=== PATIENT | male | born 1965 | race Caucasian/White ===

== ENCOUNTER 2020-09-06 19:34 | Emergency (ER) | payer OTHER, SELFPAY ==
[2020-09-06] VITALS (12 sets, daily range): BP systolic 153–168; BP diastolic 85–117; PULSE 82–92; RESP 14–18; TEMP 37.6–37.8; O2SAT 97–100
--- NOTE | ~2020-09-06 | CT_ITS ---
EXAMINATION: CT abdomen pelvis wo con DATE: 09/06/2020 20:00 INDICATION: Right flank pain TECHNIQUE: Computed tomography (CT) of the abdomen and pelvis was performed without intravenous contr ast. The dose-length product (DLP) was 460.62 mGy-cm. Automated exposure control and iterative recons truction technique were employed. COMPARISON: None FINDINGS: Minimal dependent atelectasis is present in the lung bases. The heart size is normal. The l iver, spleen, pancreas, gallbladder, and adrenal glands are normal. There is a 2.0 cm exophytic soft tissue density mass of the right kidney upper pole. No stones are identified in the kidneys, ureters, or bladder. There is no hydronephrosis or hydroureter. No pathologically enlarged abdominal or pelvi c lymph nodes are identified. There is no free intraperitoneal gas or evidence of bowel obstruction. The appendix is normal. There is moderate lumbar spondylosis. IMPRESSION: 1. No CT correlate for the patient's symptoms. 2. Soft tissue density mass of the right kidney upper pole which could reflect proteinaceous cyst or solid neoplasm. Follow-up with nonemergent CT or MRI without and with contrast is recommended. Reviewed, dictated and finalized at location A. IMPRESSION: 1. No CT correlate for the patient's symptoms. 2. Soft tissue density mass of the right kidney upper pole which could reflect proteinaceous cyst or solid neoplasm. Follow-up with nonemergent CT or MRI with out and with contrast is recommended.
--- NOTE | ~2020-09-06 | CT_ITS ---
EXAMINATION: CT abdomen pelvis w con DATE: 09/06/2020 22:01 INDICATION: Right flank pain. Renal cyst. TECHNIQUE: Computed tomography (CT) of the abdomen and pelvis was performed with 100 mL Omnipaque-350 intravenous contrast. Automated exposure control and iterative reconstruction technique were employe d. The dose-length product was 1034.25 mGy-cm. COMPARISON: 09/06/2020 FINDINGS: Mild dependent atelectasis in the bilateral lower lobes. Calcified right lower lobe nodule consistent with old granulomatous disease. Heart size is normal. No pericardial or pleural effusion. Liver, spl een, pancreas, bilateral adrenal glands and left kidney are normal. Complex hemorrhagic/proteinaceous 2.1 cm exophytic cyst arising from the upper pole of the right kidney with no enhancement/change in attenuation when compared with the earlier noncontrast study. Bowels including the appendix are nile l. Bladder is normal. No free intraperitoneal gas or fluid. No pathologically enlarged abdominal or p elvic lymphadenopathy. There is some inflammatory stranding along the right anterior margin of the T9 -T10 disc space where there is a prominent previously bridging endplate osteophyte. There is linear l ucency at the junction of the osteophyte and the T9 vertebral body which appears new when compared wi th study dated 01/01/2018 suspicious for fracture. IMPRESSION: 1. Mild inflammatory stranding in the paravertebral fat along the right anterior margin of the T9-T10 disc space where there appears to be a new fracture of a previously bridging anterior osteophyte. 2. No acute intra-abdominal/pelvic process. 3. 2.1 cm nonenhancing complex proteinaceous/hemorrhagic right renal cyst Reviewed, dictated and finalized at location A. IMPRESSION: 1. Mild inflammatory stranding in the paravertebral fat along the right anterio r margin of the T9-T10 disc space where there appears to be a new fracture of a previously bridging anterior osteophyte. 2. No acute intra-abdominal/pelvic process. 3. 2.1 cm nonenhancing complex proteinaceous/hemorrhagic right renal cyst
--- NOTE | 2020-09-06 19:52 | ED.ABDPAIN ---
HPI - Abdominal Pain General Chief Complaint: Abdominal Pain Stated Complaint: flank pain Time Seen by Provider: 09/06/20 19:43 History of Present Illness HPI narrative: 54 yo male w/ h/o DM type II presents to the ED with right flank pain since last night. He reports that the pain started in the car on the way home from eating at a [place] restaurant. It was initially more in the back, but now radiates to the RUQ. It is 9/10 in severity. Associated with mild nausea. No previous episodes. No previous abdominal surgeries. Related Data Home Medications Medication Instructions Recorded Confirmed Celebrex 200 mg PO DAILY 05/10/19 05/10/19 insulin glargine [Lantus Solostar 160 unit SUBCUT DAILY 05/10/19 05/10/19 U-100 Insulin] lisinopril 20 mg PO DAILY 05/10/19 05/10/19 metformin 1,000 mg PO BID 05/10/19 05/10/19 Allergies Allergy/AdvReac Type Severity Reaction Status Date / Time No Known Allergies Allergy Verified 05/10/19 16:11 Review of Systems Review of Systems: All systems reviewed & are unremarkable except as noted in HPI and below Constitutional: Constitutional: Denies chills and Denies fever(s) Cardiovascular: Cardiovascular: Denies chest pain Respiratory: Respiratory: Denies dyspnea Gastrointestinal: Gastrointestinal: Reports as per HPI Genitourinary: Genitourinary: Denies hematuria, Denies dysuria and Denies urinary frequency Musculoskeletal: Musculoskeletal: Reports as per HPI Exam Const: General: no acute distress Orientation/consciousness: patient oriented x3 HENMT: Head: normal to inspection Neck: Neck: normal visual inspection and no lymphadenopathy Chest: Chest palpation & inspection: no tenderness Resp: Effort & Inspection: normal respiratory effort Auscultation: clear to auscultation bilaterally, no rales, no rhonchi and no wheezes Cardio: Jugular venous distension: no JVD Rate: regular rate Rhythm: regular rhythm Heart sounds: no murmurs GI: Inspection: non-distended GI Palp: Yes Soft to palpation, Yes Tenderness to palpation present (GI) (RUQ), No Guarding due to palpation present (GI) and No Rebound tenderness present Auscultation: normal bowel sounds Skin: General skin exam: normal color Neuro: General: patient oriented x3 and moves all extremities Speech: normal speech Extrem: General: no edema Psych: Appearance: well kempt Affect: normal affect Course Vital Signs Vital signs: Vital Signs Pulse Rate 86 09/06/20 19:35 Respiratory Rate 14 09/06/20 19:35 Blood Pressure 157/117 H 09/06/20 19:35 Pulse Oximetry 100 09/06/20 19:35 Temperature 37.6 C 09/06/20 23:05 Pulse Rate 82 09/06/20 23:05 Respiratory Rate 18 09/06/20 23:05 Blood Pressure 158/93 H 09/06/20 23:30 Pulse Oximetry 99 09/06/20 23:05 MDM - Abdominal Pain MDM Narrative Medical decision making narrative: CT negative for any acute findings. He did have an indeterminate cystic lesion of the kidney he was informed and advised to follow up with urology. He also had a area of mildly distended bowel with stool and gas in the region where he is having pain. This could be the cause of his symptoms. Feeling better after toradol. Differential Diagnosis Differential diagnosis: Likely acute appendicitis, calculus of kidney, constipation, diverticulitis, small bowel obstruction and other (cholecystitis) Medical Records Attestation: I reviewed the patient's medical records. Lab Data Attestation: I reviewed the patient's lab results. Result diagrams: 09/06/20 20:23 09/06/20 20:23 Labs: Lab Results 09/06/20 09/06/20 09/06/20 Range/Units 20:23 20:23 20:23 WBC 10.8 H (4.5-10.0) K/mm3 RBC 4.86 (4.6-6.20) M/mm3 Hgb 13.4 L (14.0-18.0) g/dL Hct 41.8 L (42.0-52.0) % MCV 86.0 (80-100) fl MCH 27.6 (26-34) pg MCHC 32.1 (32-36) g/dl RDW 13.1 (11.5-14.5) % Plt Count 267 (150-375) k/mm3 MPV 9.7 (7.4-10.4)
--- NOTE | 2020-09-06 19:53 | PC.NURSE ---
Patient to CT at this time.
[2020-09-06] MEDS: MORPHINE SULFATE (*CRX) 4 MG/ML INJ IV PUSH (20:12)
[2020-09-06 20:31] LABS: Basophils Percent Auto 0.4 % (0.2-1.2); Eosinophils Absolute Auto 0.1 K/mm3 (0-0.3); Eosinophils Percent Auto 1.3 % (0-4.4); Hematocrit 41.8 % (42.0-52.0); Hemoglobin 13.4 g/dL (14.0-18.0); Immature Granulocyte Absolute 0.04 K/mm3 (0.00-0.031); Immature Granulocyte Percent A 0.4 % (0-0.5); Lymphocytes Absolute Auto 1.82 K/mm3 (0.9-3.2); Lymphocytes Percent Auto 16.9 % (18.3-44.2); Mean Corpuscular HGB Conc 32.1 g/dl (32-36); Mean Corpuscular Hemoglobin 27.6 pg (26-34); Mean Platelet Volume 9.7 fl (7.4-10.4); Monocytes Absolute Auto 1.4 K/mm3 (0.1-0.6); Monocytes Percent Auto 12.9 % (2.6-8.5); Neutrophils Absolute Auto 7.3 K/mm3 (1.3-6.7); Neutrophils Percent Auto 68.1 % (45.5-73.1); Platelet Count Result 267 k/mm3 (150-375); Red Blood Count 4.86 M/mm3 (4.6-6.20); Red Cell Distribution Width 13.1 % (11.5-14.5); White Blood Count 10.8 K/mm3 (4.5-10.0)
[2020-09-06 20:35] LABS: Add Urine Microscopic? YES; Appearance Urine Clear (Clear); Bilirubin Urine Negative (Negative); Blood Urine Negative (Negative); Color Urine Yellow (Yellow); Glucose Urine UA 3+ mg/dL (Negative); Ketones Urine Negative (Negative); Leukocyte Esterase Ur Negative LEU/UL (Negative); Nitrate Urine Negative (Negative); Protein Urine Negative (Negative); RBC Urine 0-2 /hpf (0-2); Specific Grav Ur 1.027 (1.001-1.035); Urobilinogen Urine Negative mg/dL (<2.0); WBC Urine 0-3 /hpf
[2020-09-06 20:41] LABS: Alanine Aminotransferase 18 U/L (4-50); Alkaline Phosphatase 81 U/L (38-126); Anion Gap 4 mmol/L (8-16); Aspartate Amino Transferase 23 U/L (17-59); Blood Urea Nitrogen 17 mg/dL (9-20); Carbon Dioxide 28 mmol/L (22-30); Chloride 103 mmol/L (98-107); Estimated CRCL calculation 110 ml/min; Estimated Glomerular Filt Rate > 60; Glucose 282 mg/dL (75-110); Lipase 83 U/L (23-300); Sodium 135 mmol/L (137-145)
[2020-09-06 20:47] LABS: INR 0.9; Prothrombin Time 12.5 Seconds (11.1-14.7)
[2020-09-06 20:48] LABS: Partial Thromboplastin Time 25.7 SECONDS (22.3-36.8)
[2020-09-06] MEDS: diazePAM INJ (*CRX) 10 MG/2 ML SYRINGE 5 MG IV PUSH (21:47)
[2020-09-06] MEDS: KETOROLAC 30 MG/ML VIAL (*BKC) IV PUSH (23:29)
== END 2020-09-07 00:07 | disposition home or self-care (01) ==
PROVIDERS: Emergency Medicine; Emergency Provider Emergency Medicine
DX: N28.1 Cyst of kidney, acquired (principal); E11.9 Type 2 diabetes mellitus without complications; Z79.4 Long term (current) use of insulin; R93.7 Abnormal findings on diagnostic imaging of other parts of musculoskeletal system
CPT/HCPCS: 36415; 74176; 74177; 80053; 81001; 83690; 85025; 85610; 85730; 96374; 96375; 99284; J1885; J2270; J3360; Q9967

== ENCOUNTER → 2021-03-18 07:40 | Outpatient (CLI) | payer OTHER, SELFPAY ==
--- NOTE | ~2021-03-18 | MR_ITS ---
EXAMINATION: MR abdomen wo/w con DATE: 03/18/2021 08:40 INDICATION: Renal cyst. TECHNIQUE: Magnetic resonance imaging (MRI) of the abdomen was performed without and with 20 mL Multi Kassie intravenous contrast. Sequences included coronal T2-weighted FS FSE, coronal and axial FIESTA F S, coronal LAVA-flex, axial LAVA, axial T2-weighted FSE, axial T1-weighted dual-echo FSPGR, axial STI R FSE, and axial DWI. Postcontrast sequences included coronal LAVA-flex and a time course of axial LA VA. COMPARISON: CT abdomen and pelvis 09/06/2020 FINDINGS: The liver, gallbladder, spleen, pancreas, adrenal glands, and left kidney are normal. There is a 16 m m hemorrhagic cyst in right kidney. There are no dilated loops of bowel. There are no pathologically enlarged lymph nodes. There is no free intraperitoneal fluid. IMPRESSION: 1. 16 mm benign hemorrhagic cyst in right kidney. Reviewed, dictated and finalized at location A. CONSULTANT
[2021-03-18 08:11] LABS: Estimated Glomerular Filt Rate > 60
== END ==
PROVIDERS: Visit Provider Urology
DX: N28.1 Cyst of kidney, acquired (principal)
CPT/HCPCS: 74183; A9577

== ENCOUNTER 2021-12-31 18:17 | Emergency (ER) | payer OTHER, SELFPAY ==
--- NOTE | 2021-12-31 18:19 | ED.URI ---
HPI - URI/Sore Throat General Chief Complaint: Upper Respiratory Infection Stated Complaint: unknown Time Seen by Provider: 12/31/21 18:44 Source: patient and RN notes reviewed Mode of arrival: ambulatory Limitations: no limitations History of Present Illness HPI Narrative: 56-year-old male with history of diabetes presents with concern for fever, chills, diarrhea. He reports he received a flu shot at his primary care doctor on Tuesday, yesterday he began having symptoms. Reports at first he attributed it to the flu shot, however his fever got up to 101. He denies cough, chest pain, shortness of breath. He denies taking any wpkf-ywi-phxwyxg medications for his symptoms. MD elicited complaint: fever Related Data Home Medications Medication Instructions Recorded Confirmed atorvastatin 80 mg tablet 80 mg PO WEEKLY 12/31/21 12/31/21 blood sugar diagnostic ([employer] 12/31/21 12/31/21 Ultra Test strips) flash glucose scanning reader 12/31/21 12/31/21 ([employer] Katie 2 [place]) gabapentin 300 mg capsule 300 mg PO TID 12/31/21 12/31/21 insulin glargine-yfgn 100 unit/mL 100 unit subcut DAILY 12/31/21 12/31/21 (3 mL) subcutaneous pen (Semglee (insulin glargine-yfgn) Pen) insulin lispro-aabc 100 unit/mL 100 unit subcut DAILY 12/31/21 12/31/21 subcutaneous pen (Lyumjev KwikPen U-100 Insulin) losartan 50 mg tablet 50 mg PO DAILY 12/31/21 12/31/21 pen needle, diabetic 32 gauge x 12/31/21 12/31/21 5/32 (BD Nuzhat 2nd Gen Pen Needle) tamsulosin 0.4 mg capsule 0.4 mg PO DAILY 12/31/21 12/31/21 Allergies Allergy/AdvReac Type Severity Reaction Status Date / Time No Known Allergies Allergy Verified 12/31/21 18:19 Review of Systems Review of Systems: CONSTITUTIONAL: Reports malaise, chills, sweats, fever. EYES: Denies visual changes, redness, or discharge. ENT: Denies rhinorrhea, congestion, sinus pain, otalgia and sore throat. CARDIOVASCULAR: Denies chest pain, palpitations, or edema. RESPIRATORY: Denies cough. Denies dyspnea. GASTROINTESTINAL: Denies abdominal pain, nausea, vomiting, diarrhea SKIN: Denies rash or itching. MUSCULOSKELETAL: Denies myalgia. NEUROLOGIC: Denies headache. All systems reviewed & are unremarkable except as noted in HPI and below PMFSH Comments At time of signature, agree with nursing past medical, surgical, social and family history. There is no relevant family history pertinent to the presenting complaint Exam Narrative: GENERAL: Nontoxic appearing and in no acute distress. HEAD: Normocephalic EYES: PERRLA, conjunctivae clear ENT: Nares clear. Mucous membranes moist. TM pearly high with dull light reflex bilaterally; no tragal tenderness. Oropharynx not erythematous without lesions. Tonsils not enlarged and without exudate, no drooling, no hoarseness, no trismus, uvula midline. NECK: Supple. No lymphadenopathy CHEST: Clear to auscultation, breath sounds equal. No wheezing, rhonchi, rales, or stridor. No respiratory distress, speaks in full sentences. HEART: Regular rate and rhythm. No murmur heard. SKIN: Warm, dry, no rash. NEURO: Alert and oriented x3. PSYCH: Normal mood and affect Course Course Emergency Course: Patient is aware of diagnosis, understands and agrees to treatment plan. Anticipatory guidance given. Patient agrees to follow-up as directed and is aware of reasons to seek care at the emergency department. Portions of this record may have been created with voice recognition software Level of Care: Express Care Visit Vital Signs Vital signs: Reviewed. MDM - URI/Sore Throat MDM Narrative Medical decision making narrative: Differential diagnosis considered: Llanos virus, strep pharyngitis, allergic rhinitis, upper respiratory tract infection, sinusitis, rhinosinusitis, nasopharyngitis. viral pharyngitis, otitis media, otitis externa, pneumonia, bronchitis, viral cough syndrome, viral syndrome, and influenza. Exam findings show no acute concerns or changes; patie
[2021-12-31 18:27] VITALS: BP 121/83; PULSE 93; RESP 18; TEMP 36.6; O2SAT 98
== END 2021-12-31 18:58 | disposition home or self-care (01) ==
PROVIDERS: Emergency Provider Nurse Practitioner
DX: J10.1 Influenza due to other identified influenza virus with other respiratory manifestations (principal); E11.9 Type 2 diabetes mellitus without complications; Z79.4 Long term (current) use of insulin; Z20.822 Contact with and (suspected) exposure to COVID-19
CPT/HCPCS: 87426; 87804; 99213; C9803; G0463

== ENCOUNTER 2023-09-14 15:43 | Emergency (ER) | payer OTHER, SELFPAY ==
--- NOTE | ~2023-09-14 | XR_ITS ---
EXAM: XR hip RT 2V w AP pelvis DATE: 09/14/2023 17:24 HISTORY: RIGHT HIP PAIN, NO KNOWN INJURY . COMPARISON: CT abdomen pelvis 09/06/2020. FINDINGS: Normal mineralization. No fracture or dislocation. No lytic or blastic lesion. Lumbar dege nerative disc disease. Mild bilateral hip osteoarthritis. Mild pelvic enthesopathy. No erosion or per iosteal change. Scattered vascular and possibly vas deferens calcification. IMPRESSION: No acute osseous finding in the pelvis or right hip. Reviewed, dictated and finalized at location K.
--- NOTE | 2023-09-14 16:00 | ED.BACK ---
HPI - Back Pain/Injury General Chief Complaint: Back Pain/Injury Stated Complaint: back, right hip pain Time Seen by Provider: 09/14/23 15:55 Source: patient Mode of arrival: ambulatory Limitations: no limitations History of Present Illness HPI Narrative: This is a 57 old male presents with right hip pain radiating into right buttock pain of several weeks duration. Patient denies any fevers. No known trauma or injury. He has been taking Advil b.i.d. states this does not work. He denies any numbness or tingling but it occasionally experience a warm sensation in his right leg. Works as a [employer]. His muscles will feel tense after sitting for a prolonged duration. Denies penile discharge or groin pain. No IVDU. No changes in bowel or bladder. Patient states his blood sugars have been elevated and for this his primary care physician (Dr Gallegos) has referred him to an environmental project manager. He is on both long acting and short acting insulin. Related Data Home Medications Medication Instructions Recorded Confirmed atorvastatin 80 mg tablet 80 mg PO WEEKLY 12/31/21 12/31/21 blood sugar diagnostic ([employer] 12/31/21 12/31/21 Ultra Test strips) flash glucose scanning reader 12/31/21 12/31/21 ([employer] Katie 2 [place]) gabapentin 300 mg capsule 300 mg PO TID 12/31/21 12/31/21 insulin glargine-yfgn 100 unit/mL 100 unit subcut DAILY 12/31/21 12/31/21 (3 mL) subcutaneous pen (Semglee (insulin glargine-yfgn) Pen) insulin lispro-aabc 100 unit/mL 100 unit subcut DAILY 12/31/21 12/31/21 subcutaneous pen (Lyumjev KwikPen U-100 Insulin) losartan 50 mg tablet 50 mg PO DAILY 12/31/21 12/31/21 pen needle, diabetic 32 gauge x 12/31/21 12/31/21 (BD Nuzhat 2nd Gen Pen Needle) tamsulosin 0.4 mg capsule 0.4 mg PO DAILY 12/31/21 12/31/21 Allergies Allergy/AdvReac Type Severity Reaction Status Date / Time No Known Allergies Allergy Verified 09/14/23 16:03 [facility] Past Medical History Medical History Insulin dependent diabetes mellitus Left hand dominant Surgical History Surgical History S/P rhinoplasty 09/08/23 Social History Social History (Updated 09/14/23 @ 19:59 by Jeane Ballard MD) Substance use type: does not use Other substance usage details: Denies IVDU Occupation/Education: occupation Additional occupation/education comments: [employer] Exam Narrative: GENERAL: Well-appearing, well-nourished, and in no acute distress. HEAD: Normocephalic, atraumatic. EYES: Non injected, non icteric ENT: Nares clear, no rhinorrhea or epistaxis. NECK: Supple. CHEST: Speaking in full sentences. No respiratory distress. HEART: Regular rate and rhythm. . ABDOMEN: Soft, nondistended. BACK/EXTREMITIES: Normal range of motion. No edema. Legs are grossly symmetric on exam without erythema or edema in bilateral calves/shins. No tenderness to palpation of lumbar spine; bony processes midline w/o stepoffs. SKIN: Warm, dry, no rash. NEURO: No focal deficits. Alert and oriented x3. 5/5 strength with bilateral ankle dorsiflexion and plantar flexion, bilaterally flexion extension, bilateral hip flexion, abduction, and adduction. Ambulates with steady gait. Demonstrates flexion at the waist as well as side bends bilaterally. PSYCH: Normal mood and affect. Course Vital Signs Vital signs: Vital Signs Temperature 98 F 09/14/23 16:01 Pulse Rate 66 09/14/23 16:01 Respiratory Rate 18 09/14/23 16:01 Blood Pressure 144/80 H 09/14/23 16:01 Pulse Oximetry 98 09/14/23 16:01 Oxygen Delivery Room Air 09/14/23 16:01 Temperature 98 F 09/14/23 16:01 Pulse Rate 68 09/14/23 18:09 Respiratory Rate 18 09/14/23 18:09 Blood Pressure 152/100 H 09/14/23 18:09 Pulse Oximetry 100 09/14/23 18:09 Oxygen Delivery Room Air 09/14/23 16:01 MDM - Back Pain/Inju
[2023-09-14 16:01] VITALS: BP 144/80; PULSE 66; RESP 18; TEMP 36.6; O2SAT 98
[2023-09-14] MEDS: HYDROcodone/acetaminophen (*CRX) 5-325 MG TABLET 1 TAB PO (16:34)
[2023-09-14] MEDS: ACETAMINOPHEN 325 MG TABLET 650 MG PO (16:34)
[2023-09-14 17:56] LABS: Glucose Point of Care 160 mg/dl (65-105)
[2023-09-14] MEDS: LIDOCAINE 5% PATCH 1 PATCH TRANSDERM (18:05)
[2023-09-14] MEDS: KETOROLAC 30 MG/ML VIAL (*BKC) 15 MG IM (18:06)
[2023-09-14 18:09] VITALS: BP 152/100; PULSE 68; RESP 18; O2SAT 100
== END 2023-09-14 18:18 | disposition home or self-care (01) ==
PROVIDERS: Emergency Provider Student in an Organized Health Care Education/Training Program
DX: M54.31 Sciatica, right side (principal); M54.16 Radiculopathy, lumbar region; I10 Essential (primary) hypertension; E11.65 Type 2 diabetes mellitus with hyperglycemia; Z79.4 Long term (current) use of insulin; Z79.899 Other long term (current) drug therapy
CPT/HCPCS: 73502; 82948; 96372; 99283; A9270; J1885

== ENCOUNTER 2024-03-13 09:08 | Emergency (ER) | payer OTHER, SELFPAY ==
--- NOTE | ~2024-03-13 | XR_ITS ---
XR chest 2V Ordering provider: Sonya Hampton NP History: 58 years Male with . cough fever . Comparison: None. FINDINGS: MEDIASTINUM: The cardiac silhouette is not enlarged. LUNGS: No infiltrates, effusions or pneumothorax. OTHER: No free air under the diaphragm. Degenerative changes of the spine. IMPRESSION: No acute cardiopulmonary pathology. Reviewed, dictated and finalized at location A. GED CARE COORDINATOR
[2024-03-13 09:33] VITALS: BP 140/78; PULSE 88; RESP 18; TEMP 37.3; O2SAT 99
[2024-03-13 09:49] LABS: EDCOVIDSCREEN Negative (Negative); EDINFLUASCREEN Negative (Negative); EDINFLUBSCREEN Negative (Negative)
--- NOTE | 2024-03-13 10:01 | ED_ITS ---
HPI - URI/Sore Throat General Chief Complaint: Upper Respiratory Infection Stated Complaint: fever / bodyaches / cough Time Seen by Provider: 03/13/24 10:01 Source: patient Mode of arrival: ambulatory Limitations: no limitations History of Present Illness HPI Narrative: 58-year-old male presents with complaint of nasal congestion, fatigue, coughing for 2-3 days. Has had fever 102-103 F. Taking ofya-uis-idfiunu medications to treat his Symptoms. No chest pain or shortness of breath. Denies nausea vomiting diarrhea. All systems reviewed and negative except as noted above. Related Data Home Medications Medication Instructions Recorded Confirmed insulin glargine-yfgn 100 unit/mL 100 unit subcut DAILY 12/31/21 03/13/24 (3 mL) subcutaneous pen (Semglee (insulin glargine-yfgn) Pen) insulin lispro-aabc 100 unit/mL 100 unit subcut DAILY 12/31/21 03/13/24 subcutaneous pen (Lyumjev KwikPen U-100 Insulin) losartan 50 mg tablet 50 mg PO DAILY 12/31/21 03/13/24 rosuvastatin 40 mg tablet 40 mg PO DAILY 03/13/24 03/13/24 Allergies Allergy/AdvReac Type Severity Reaction Status Date / Time No Known Allergies Allergy Verified 03/13/24 09:38 Review of Systems Review of Systems: CONSTITUTIONAL: Reports fever, chills, or sweats. EYES: Denies visual changes, redness, or discharge. ENT: reports rhinorrhea, congestion. Denies sore throat, or otalgia. CARDIOVASCULAR: Denies chest pain, palpitations, or edema. RESPIRATORY: reports cough. Denies dyspnea. GASTROINTESTINAL: Denies abdominal pain, nausea, vomiting, or diarrhea. GENITOURINARY: Denies dysuria or hematuria. SKIN: Denies rash or itching. MUSCULOSKELETAL: Denies back pain, joint pain, or myalgia. NEUROLOGIC: Denies headache, numbness, or weakness. PSYCHIATRIC: Denies anxiety or depression. All other systems reviewed are negative, except as documented in HPI. 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 There is no relevant family history pertinent to the presenting complaint. Exam Narrative: GENERAL: This is a well-nourished, well-developed patient, patient ill- appearing but in no acute distress HEAD: normocephalic, atraumatic. EYES: PERRL. Sclera clear/white. Vision is grossly intact. EARS: External ears normal, auditory canals clear and without drainage, TMs normal without perforation. Hearing grossly intact. NOSE: External nose normal with clear nasal drainage, mild erythema to bilateral nares. THROAT: Mucous membranes moist, Mild erythema postnasal drainage NECK: Neck supple, non-tender without lymphadenopathy, masses or thyromegaly. CARDIOVASCULAR: Regular rate and rhythm without murmurs, gallops, or rubs. RESPIRATORY: Clear to auscultation. Breath sounds equal bilaterally. No wheezes, rales, or rhonchi. SKIN: warm, Dry, intact with no suspicious lesions or rash, good texture and turgor. NEURO: awake, alert, and oriented to person, place and time. There were no obvious focal neurologic abnormalities. EXTREMITIES: No joint tenderness, effusion, or edema noted. Course Course Level of Care: Express Care Visit Vital Signs Vital signs: Vital Signs Temperature 37.3 C 03/13/24 09:33 Pulse Rate 88 03/13/24 09:33 Respiratory Rate 18 03/13/24 09:33 Blood Pressure 140/78 03/13/24 09:33 Pulse Oximetry 99 03/13/24 09:33 Oxygen Delivery Room Air 03/13/24 09:33 Temperature 37.3 C 03/13/24 09:33 Pulse Rate 88 03/13/24 09:33 Respiratory Rate 18 03/13/24 09:33 Blood Pressure 140/78 03/13/24 09:33 Pulse Oximetry 99 03/13/24 09:33 Oxygen Delivery Room Air 03/13/24 09:33 reviewed MDM - URI/Sore Throat MDM Narrative Medical decision making narrative: negative COVID, influenza test. Chest x-ray normal. Recommend patient take rxhy-uln-nhnxyqh medications to treat symptoms. Patient well-appearing, nontoxic. Vital signs stable. Patient is aware of diagnosis, understands and agrees to treatment plan. Anticipatory guidance given. Patient agrees to follow-up as directed and is aware of reasons to seek care at the emergency department. Portions of this record may have been created with voice recognition software Differential Diagnosis Differential diagnosis: Likely upper respiratory infection, sinusitis, viral infection and influenza Lab Data Labs: Lab Results 03/13/24 Range/Units 09:47 POC Influenza A Ag Negative (Negative) POC Influenza B Ag Negative (Negative) POC SARS CoV-2 Ag Negative (Negative) Imaging Data My impression: agree with radiologist Radiologist's impression: XR chest 2V Ordering provider: Sonya Hampton NP History: 58 years Male with . cough fever . Comparison: None. FINDINGS: MEDIASTINUM: The cardiac silhouette is not enlarged. LUNGS: No infiltrates, effusions or pneumothorax. OTHER: No free air under the diaphragm. Degenerative changes of the spine. IMPRESSION: No acute cardiopulmonary pathology. Discharge Plan Discharge Clinical Impression: Viral upper respiratory tract infection with cough Patient Disposition: Home, Self-Care Condition: Stable Instructions: Upper Respiratory Infection (ED) Additional Instructions: your COVID and influenza test were negative today. Your chest x-ray was normal. Your symptoms are viral and may last 7-10 days. Taking xctz-exn-ajopwdn medication to treat her symptoms such as DayQuil NyQuil cold and flu. Take ibuprofen every 6-8 hours as needed for pain and fever. Drink at least 64 oz of water a day. For any worsening of your symptoms go to the ER. Prescriptions: No Action losartan 50 mg tablet 50 mg PO DAILY Brissaumjamaal Sigala U-100 Insulin 100 unit/mL insulin pen 100 unit SUBCUT DAILY insulin glargine-yfgn [Semglee(insulin glarg-yfgn)Pen] 100 unit/mL (3 mL) insulin pen 100 unit SUBCUT DAILY rosuvastatin 40 mg tablet 40 mg PO DAILY Follow-up/Referrals: PHYSICIAN,POLYETHYLENE COMBINER [Primary Care Provider] - Time of Disposition: 10:28
== END 2024-03-13 10:33 | disposition home or self-care (01) ==
PROVIDERS: Emergency Provider Nurse Practitioner Family
DX: J06.9 Acute upper respiratory infection, unspecified (principal); B97.89 Other viral agents as the cause of diseases classified elsewhere; E11.9 Type 2 diabetes mellitus without complications; Z79.4 Long term (current) use of insulin; Z79.899 Other long term (current) drug therapy; Z20.822 Contact with and (suspected) exposure to COVID-19
CPT/HCPCS: 71046; 87426; 87804; 99213; G0463

== ENCOUNTER 2024-11-02 14:23 | Emergency (ER) | payer OTHER, SELFPAY ==
--- NOTE | 2024-11-02 14:24 | ED.GENADULT ---
HPI - General Adult General Chief complaint: Upper Respiratory Infection Stated complaint: covid test (+) Time Seen by Provider: 11/02/24 14:40 Source: patient, RN notes reviewed and old records reviewed Mode of arrival: ambulatory Limitations: no limitations History of Present Illness HPI narrative: 58-year-old male presents to the [facility] requesting a COVID test. Tuesday started with postnasal drainage, dry cough. Denies fevers. Reports taking COVID test at home which he reports is positive. Reports that he was at a wedding over the weekend reports that multiple people or positive. No treatment prior to arrival Onset (ago): day(s) (2) Related Data Home Medications ?Medication ?Instructions ?Recorded ?Confirmed ?Last Taken ?Type insulin glargine-yfgn 100 unit/mL 100 unit subcut DAILY 12/31/21 03/13/24 Unknown History (3 mL) subcutaneous pen (Semglee (insulin glargine-yfgn) Pen) insulin lispro-aabc 100 unit/mL 100 unit subcut DAILY 12/31/21 03/13/24 Unknown History subcutaneous pen (Lyumjev KwikPen U-100 Insulin) losartan 50 mg tablet 50 mg PO DAILY 12/31/21 03/13/24 Unknown History rosuvastatin 40 mg tablet 40 mg PO DAILY 03/13/24 03/13/24 Unknown History tirzepatide 2.5 mg/0.5 mL mg subcut 11/02/24 Unknown History subcutaneous pen injector (Mounjaro) Allergies Allergy/AdvReac Type Severity Reaction Status Date / Time No Known Allergies Allergy Verified 11/02/24 14:36 Review of Systems Review of Systems: All systems reviewed & are unremarkable except as noted in HPI and below Constitutional: Constitutional: Reports no additional constitutional complaints ENT: Reports as per HPI Cardiovascular: Cardiovascular: Reports no additional cardiovascular complaints, Denies chest pain and Denies dyspnea Respiratory: Respiratory: Reports as per HPI, Denies chest congestion, Reports cough and Denies dyspnea Musculoskeletal: Musculoskeletal: Reports no additional musculoskeletal complaints Integumentary/Breasts: Skin/Breast: Reports system reviewed and no additional complaints, except as docu PMFSH Past Medical History Medical History Insulin dependent diabetes mellitus Left hand dominant Surgical History Surgical History S/P rhinoplasty 09/08/23 Social History Social History Substance use type: does not use Other substance usage details: Denies IVDU Occupation/Education: occupation Additional occupation/education comments: Mine Comments At the time of my signature, I reviewed and agree with the nursing past medical, surgical, social, and family history. There is no relevant family history pertinent to the patient complaint. Exam Const: General: cooperative, healthy appearing, comfortable, no acute distress, well developed, alert and well nourished Nutritional Appearance: well nourished Orientation/consciousness: patient oriented x3 Limitations: no limitations HENMT: Head: normal to inspection Ears: hearing grossly normal bilaterally, external ears normal, TM's normal bilaterally, EAC's normal, mastoids normal and no periauricular adenopathy Mouth: Yes Normal oral and palatal mucosa present, Yes lip normal, Yes tongue normal and Yes moist mucous membranes Throat: posterior oropharynx normal, uvula midline and no uvular edema Eyes: General: appearance normal, both eyes and all related structures Alignment and Position: alignment normal Neck: Neck: normal visual inspection, full ROM, no lymphadenopathy and no meningeal signs Chest: Chest palpation & inspection: normal inspection of the chest Resp: Effort & Inspection: normal respiratory effort and able to speak in complete sentences Auscultation: clear to auscultation bilaterally, no crackles, no rales, no rhonchi and no wheezes Cardio: Rate: regular rate Skin: General skin exam: normal color and no rashes or lesions noted Neuro: General: patient oriented x3, gait normal, moves all extremities and no meningeal signs Cognition (Neuro): normal cognition Speech: normal speech Gait exam (Neuro): Normal gait present Extrem: General: normal to inspection, full ROM, capillary refill normal and normal gait Psych: Appearance: grossly normal and well kempt Mental Status: mental status grossly normal Speech and movement: Normal speech and movement present and Clear speech present Affect: normal affect Attitude: cooperative Course Course Level of Care: Express Care Visit Vital Signs Vital signs: Vital Signs Temperature 97.9 F 11/02/24 14:38 Pulse Rate 86 11/02/24 14:38 Respiratory Rate 16 11/02/24 14:38 Blood Pressure 126/80 11/02/24 14:38 Pulse Oximetry 98 11/02/24 14:38 Oxygen Delivery Room Air 11/02/24 14:38 Temperature 97.9 F 11/02/24 14:38 Pulse Rate 86 11/02/24 14:38 Respiratory Rate 16 11/02/24 14:38 Blood Pressure 126/80 11/02/24 14:38 Pulse Oximetry 98 11/02/24 14:38 Oxygen Delivery Room Air 11/02/24 14:38 Reviewed Medical Decision Making MDM Narrative Medical decision making narrative: Patient sitting comfortably in exam room. Nontoxic, vitals stable. Patient in no acute distress Patient sitting in exam room. Patient is nontoxic, vitals are stable. Patient presents with concerns for COVID-19. Patient positive COVID in clinic. No recent lab work on patient. Patient with appears to be a very mild case of COVID-19. Patient appropriate for outpatient treatment with close follow-up Discharge instructions reviewed with patient, as well as provided in writing per nursing staff. The instructions also include specific and strict return/GO TO THE ER as well as f/u information. All questions have been answered, and the patient deny any further questions with discharge and discharge plan. Some parts of this dictation were generated by voice recognition software and may contain typographical and/or grammatical inaccuracies. Differential Diagnosis Differential Diagnosis: COVID, flu, URI Medical Records Medical records reviewed: Yes I reviewed the external patient's medical records. Vital Signs Vital Signs: Vital Signs Temperature 97.9 F 11/02/24 14:38 Pulse Rate 86 11/02/24 14:38 Respiratory Rate 16 11/02/24 14:38 Blood Pressure 126/80 11/02/24 14:38 Pulse Oximetry 98 11/02/24 14:38 Oxygen Delivery Room Air 11/02/24 14:38 Temperature 97.9 F 11/02/24 14:38 Pulse Rate 86 11/02/24 14:38 Respiratory Rate 16 11/02/24 14:38 Blood Pressure 126/80 11/02/24 14:38 Pulse Oximetry 98 11/02/24 14:38 Oxygen Delivery Room Air 11/02/24 14:38 Reviewed Lab Data Lab results reviewed: Yes I reviewed the patient's lab results. Labs: Lab Results 11/02/24 Range/Units 14:40 POC SARS CoV-2 Ag Positive (Negative) Reviewed Critical Care Time Critical Care Time Critical Care Time: No Discharge Plan Discharge Clinical Impression: COVID-19 Patient Disposition: Home Condition: Stable Instructions: Antibiotic Form, COVID-19 (Coronavirus Disease 2019) (ED) Additional Instructions: Your rapid COVID test was positive Your symptoms are likely due to a viral illness, which is not treated with antibiotics. Typically viral infections last 7-10 days, can linger for couple of weeks. It is very important to treat your symptoms. Drink plenty of water, Gatorade, Pedialyte, ice pops or Jell-O. -Alternate Tylenol and Motrin per package directions for fever or pain. You can alternate every 4 hours -Antihistamine medication such as Zyrtec/Claritin/Susan during the day can help improve symptoms. -doing daily nasal irrigations can help relieve pressure your sinuses. Things like a Neti pot -Use Flonase twice a day for 5 days then daily to help reduce the inflammation and dry up your sinuses. -You can also use Coricidin HBP. Be sure to drink plenty of water with this medication at least 8 ounces with every dose and it is important to drink 8 to 10 glasses of water per day. Water is a natural decongestant -Eat and drink things that are easy to swallow, like tea or soup, or popsicles. -Oral rinses such as: Salt water gargles and/or may use topical anesthetic (eg. Chloraseptic spray) or lozenges to relieve dryness or throat pain). -Frequent hand washing or hand quality assurance consultant is one of the best ways to prevent spread of infection. -Using a vaporizer or humidifier at night will also help thin secretions and help with coughing up phlegm. -Follow up with primary care provider in 7-10 days if condition is not improving - For new or worsening symptoms go directly to the nearest ER Patient Language: Vietnamese Prescriptions: No Action losartan 50 mg tablet 50 mg PO DAILY Brissaumjamaal EspinalPen U-100 Insulin 100 unit/mL insulin pen 100 unit SUBCUT DAILY insulin glargine-yfgn [Semglee(insulin glarg-yfgn)Pen] 100 unit/mL (3 mL) insulin pen 100 unit SUBCUT DAILY rosuvastatin 40 mg tablet 40 mg PO DAILY Mounjaro 2.5 mg/0.5 mL pen injector SUBCUT Follow-up/Referrals: UNKNOWN,DOCTOR [Primary Care Provider] - Stand Alone Forms: Work/School Release IP
--- OUTSIDE RECORDS SUMMARY | 2024-11-02 14:27 | XMS_ITS | Clinical Summary ---
Author Organization [facility] [address] Address [address] [place] [address] Care Team Providers Care Lamination Machine Operator Name Role Phone Babak Aragon MD Primary Care Provider [phone] Allergies Active Allergy Reactions Criticality Noted Date Comments Ofrexfn-Fjl-Bor Reductase Inhibitors Muscle pain High 08/20/2024 Product containing 9-nojkhja-6-methylglutary l-coenzyme A reductase inhibitor (product) Medications gabapentin (NEURONTIN) 300 mg capsule Take 1 capsule (300 mg total) by mouth 3 (three) times a day 270 capsule 2 02/13/20 24 Active losartan (COZAAR) 50 mg tablet Take 1 tablet (50 mg total) by mouth daily 90 tablet 1 02/13/20 24 Active insulin lispro-aabc (LYUMJEV) 100 unit/mL pen for injection Inject 25 Units under the skin 2 (two) times a day Dispense 90 days 999 mL 05/02/19 25 Active pen needle, diabetic (BD Nuzhat 2nd Gen Pen Needle) 32 gauge x 5/32 needleIndicati ons:Type 2 diabetes mellitus without complication, with long-term current use of insulin (HCC) TO CHECK BLOOD GLUCOSE LEVELS 4 TIMES A DAY 360 each 3 07/14/19 25 Active rosuvastatin (CRESTOR) 40 mg tablet Take 1 tablet (40 mg total) by mouth daily 90 tablet 1 08/09/19 25 026 Active TRESIBA 200 unit/mL (3 mL) pen for injection 150 Units daily. 69 mL 1 08/14/19 25 Active acetaminophen (TYLENOL) 500 mg tablet Take 2 tablets (1,000 mg total) by mouth every 6 (six) hours as needed Active FreeStyle Katie 2 Sensor kit 06/03/19 25 Active insulin glargine (SEMGLEE-yfgn) 100 unit/mL (3 mL) pen for injection Active ibuprofen (ADVIL,MOTRIN) 600 mg tablet Take 1 tablet (600 mg total) by mouth 3 (three) times a day as needed for pain Active dicyclomine (BENTYL) 10 mg capsule Take 1 capsule (10 mg total) by mouth 4 (four) times a day before meals and nightly 30 capsule 1 10/06/19 25 026 Active tirzepatide (Mounjaro) 5 mg/0.5 mL pen injector injection Inject 0.5 mL (5 mg total) under the skin every 7 days 2 mL 10/24/19 25 Active insulin glargine (TOUJEO) 300 unit/mL (1.5 mL) pen for injection Please send 45 pens for a 90 day supply. Disregard the 999 mL 45 mL 3 05/05/19 24 024 Discontinued tamsulosin (FLOMAX) 0.4 mg extended release capsule Take 1 capsule (0.4 mg total) by mouth daily 90 capsule 1 02/13/20 24 025 Discontinued blood-glucose sensor device DEXCOM G7. Check glucoses 4x daily. Change every 10 days. Dx e11.9. 9 each 1 08/14/19 25 025 Discontinued meloxicam (MOBIC) 15 mg tablet Take 1 tablet (15 mg total) by mouth daily 07/12/19 25 025 Discontinued tirzepatide (Mounjaro) 2.5 mg/0.5 mL pen injector injection Inject 0.5 mL (2.5 mg total) under the skin every 7 days 2 mL 09/26/19 25 025 Discontinued Hospital, Clinic, or Other Facility Administered Medication Ordered Dose Route Frequency Start Date End Date Status lidocaine (XYLOCAINE) 10 mg/mL (1 %) injection 1 mLIndications:Admi nistration of Local Anesthesia 1 mL One-Time Injection 10/15/2024 10/15/2024 Ended lidocaine (XYLOCAINE) 10 mg/mL (1 %) injection 1 mLIndications:Admi nistration of Local Anesthesia 1 mL One-Time Injection 10/15/2024 10/15/2024 Ended methylPREDNISolone acetate (DEPO-medrol) injection 10 mgIndications:Bila teral hand numbness 10 mg intra-artic One-Time Injection 10/15/2024 10/15/2024 Ended methylPREDNISolone acetate (DEPO-medrol) injection 10 mgIndications:Bila teral hand numbness 10 mg intra-artic One-Time Injection 10/15/2024 10/15/2024 Ended Active Problems Problem Noted Date Diagnosed Date Dupuytren's contracture 12/30/2022 S/P colonoscopy 09/28/2021 Annual physical exam 09/28/2021 Diabetic neuropathy associat ed with type 2 diabetes mellitus 09/28/2021 DEVIN-inhibitor cough 08/02/2019 Assessment & Plan (08/02/2019 1:37 PM CDT): Suspected based on timing of cough and lack of benefit of numerous other treatments. - Stop lisinopril, change back to losartan for HTN - Should note improvement in a week. If no improvement, consider empiric PPI for GERD given positional component of cough and f/u CXR to look again for pulmonary parenchymal disease. Erectile disorder, acquired, situational, modera te 04/27/2018 Colon adenomas 08/08/2017 Low back pain 03/15/2017 Right shoulder pain 03/15/2017 Refused influenza vaccine 03/15/2017 Shoulder joint painful on movement 03/15/2017 Eustachian tube dysfunction 05/11/2016 Metabolic syndrome 11/05/2015 Hypertension 07/07/2015 Assessment & Plan (08/13/2024 2:43 PM CDT): At goal on current therapy. Assessment & Plan (04/12/2024 1:18 PM TIRE BAGGER): At goal on current therapy. Assessment & Plan (01/02/2024 12:04 PM CDT): At goal on current therapy. Assessment & Plan (09/26/2023 6:12 PM CDT): At goal on current therapy. Essential tremor 07/07/2015 Night sweats 09/16/2014 Hyperlipidemia 08/28/2013 Assessment & Plan (08/13/2024 9:43 PM CDT): LDL a little high. Would be best to increase Crestor to 4x per week. Assessment & Plan (04/12/2024 1:17 PM TIRE BAGGER): At goal on current therapy. Assessment & Plan (01/02/2024 12:06 PM CDT): At goal on current therapy. Assessment & Plan (09/26/2023 6:12 PM CDT): At goal on current therapy. Type 2 diabetes mellitus 08/28/2013 Assessment & Plan (08/13/2024 9:44 PM CDT): A1c above goal. Increase prandial insulin by 4 Units across the board. Will try to get Mounjaro covered. Switch Semglee to Tresiba 150 Units daily to ensure better absorption. Switch Katie to DEXCOM. Recommend yearly eye exams. Assessment & Plan (04/12/2024 8:09 PM TIRE BAGGER): A1c improving, but still above goal. Add sliding scale at ISF of 1:25 as follows: Breakfast and lunch: If your glucose is between 70-150: Take 10 Units If your glucose is between 151-200: Take 12 Units 201-250: take 14 Units 251-300: take 16 Units 301-350: take 18 Units > 350: take 20 Units Dinner: If your glucose is between 70-150: Take 14 Units If your glucose is between 151-200: Take 16 Units 201-250: take 18 Units 251-300: take 20 Units 301-350: take 22 Units > 350: take 24 Units Continue yearly eye exams. Assessment & Plan (01/02/2024 12:42 PM CDT): A1c remains above goal. Glucoses highly variable on CGM. Will add Ozempic 0.25 mg weekly x4 weeks, then 0.5 mg weekly thereafter. Keep insulin doses the same. Will upgrade to Katie 3. Recommend yearly eye exams. Continue gabapentin for neuropathy. He will meet with our CDE today. Assessment & Plan (09/26/2023 6:15 PM CDT): We discussed that his A1c is above goal and that our target is 7% or less. He is taking too much basal insulin and not enough prandial insulin based on review of his CGM. I recommended the following: - Decrease basal insulin to 150 Units nightly - Continue Lyumjev, but recommend dosing with every meal as follows (of note, he is only taking his Lyumjev a fraction of the time currently): If your glucose is between 70-150: Take 10 Units If your glucose is between 151-200: Take 12 Units 201-250: take 14 Units 251-300: take 16 Units 301-350: take 18 Units > 350: take 20 Units Try to eliminate afternoon snack to avoid insulin stacking with dinner. He should ideally have 3 meals per day, which contain a consistent amount of carbohydrate. I have ordered routine diabetes labs for him today. Continue yearly ophthalmology visits. Continue gabapentin for neuropathy. RTC in 3 months to see me and our inclusion paraeducator. Encounters Date Type Department Care Team Description 10/23/2024 Orders Only [facility] [address] [place] [address] Annie Tsai RMA 10/15/2024 7:10 AM CDT Office Visit [facility] [address] [place] [address] [address] [place] [phone] Marcus Varela MD Bilateral hand numbness (Primary Dx) 09/26/2024 Telephone [facility] [address] [place] [id number] Marcus Varela MD 09/20/2024 9:20 AM CDT Ancillary Procedure [facility] [address] [place] [address] [address] [place] [phone] Bilateral hand numbness 09/20/2024 9:00 AM CDT Procedure visit [facility] [address] [place] [address] Joe Castano MD Bilateral hand numbness (Primary Dx) 09/18/2024 Telephone [facility] [address] [place] [phone] Ki Hughes MD PA MOUNJARO 2.5MG 08/20/2024 1:20 PM CDT Office Visit [facility] [address] [facility] [address] [facility] [address] 2[address] [place] [address] Marcus Varela MD Bilateral hand numbness (Primary Dx); Dupuytren's disease of palm; Diabetic neuropathy associated with type 2 diabetes mellitus (HCC) 08/13/2024 2:15 PM CDT Office Visit [facility] [address] [place] [address] [address] [facility] [place] [phone] Ki Hughes MD Type 2 diabetes mellitus without complication, with long-term current use of insulin (HCC) (Primary Dx); Pure hypercholesterolemia ; Primary hypertension from Last 3 Months Immunizations Immunization Administration Dates Next Due DT 04/18/2012 Influenza, Quadrivalent, Rec ombinant, Egg Free, Preservative Free, Intramuscular 12/28/2021 Bunchball (J&J) SARS-CoV-2 Vaccination 06/26/2020 Moderna Sars-cov-2 Bivalent Vaccine 50 Mcg/0.5 mL (12+ YRS)-Blue/Ortiz 08/09/2022 Pfizer SARS-CoV-2 Monovalent Vaccination (12+ Yrs) PURPLE 10/01/2021,04/14/2021 ZOSTER LIVE 10/01/2021 ZOSTER Recombinant 05/19/2022,04/18/2022 Surgical History Surgery Date Site/Laterality Comments FLUORO GUIDED INJECTION SHOULDER LEFT 03/27/2018 Lef t ROTATOR CUFF REPAIR SHOULDER ARTHROSCOPY SHOULDER SURGERY KNEE ARTHROSCOPY Medical History Medical History Date Comments Personal history of other di seases of the respiratory system History of acute bronchitis - (Added by TW Conv) Abdominal pain Abdominal discom fort - (Added by TW Conv) Personal history of other di seases of the circulatory system History of intermittent handy dication - (Added by TW Conv) Personal history of other di seases of the nervous system and sense organs History of eustachian tube dysfunction - (Added by TW Conv) Pain in right shoulder Right ant erior shoulder pain - (Added by TW Conv) Lumbago with sciatica Low back p ain with radiation - (Added by TW Conv) Anxiety Arthritis Diabetes mellitus (HCC) Hypercholesteremia Hypertension Migraines Family History Medical History Relation Name Comments Arthritis Father Hypertension Father Osteoarthritis Father Family histor y of osteoarthritis - (Added by TW Conv) Arthritis Mother Clotting disorder Mother Hypertension Mother Lung disease Mother Relation Name Status Comments Father Mother Social History Tobacco Use Types Packs/Day Years Used Date Smoking Tobacco: Never Smokeless Tobacco: Never Alcohol Use Standard Drinks/Week Comments Yes 0 (1 standard drink = 0.6 oz pur e alcohol) Sex and Gender Information Value Date Recorded Sex Assigned at Not on file Legal Sex Male 12:35 PM TIRE BAGGER Gender Identity Male 05/17/2023 7:58 AM TIRE BAGGER Sexual Orientation Straight 05/17/2023 7: 58 AM TIRE BAGGER 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 Not on file Not on file Obstetrics History Last Filed Vital Signs Vital Sign Reading Time Taken Comments Blood Pressure 113/78 08/13/2024 2:12 PM CDT Pulse 94 08/13/2024 2:12 PM CDT Temperature 36.9 C (98.4 F) 02/13/2024 2:52 PM CDT Respiratory Rate - - Oxygen Saturation 97% 12/30/2022 3:14 PM CDT Inhaled Oxygen Concentration - - Weight 110.2 kg (243 lb) 08/20/2024 12:57 PM CDT Height 190.5 cm (6' 3) 08/20/2024 12:57 PM CDT Body Mass Index 30.37 08/20/2024 12:57 PM CDT Plan of Treatment Health Maintenance Due Date Last Done Comments Depression Screening 1965 Hepatitis C Screening 1965 Foot Exam 1965 Hepatitis B Screening 11/13/1983 Pneumococcal vaccine <65 (1 of 2 - PCV) 1984 DTaP/Tdap/Td Vaccine (2 - Tdap) 04/18/2022 3 Covid-19 Vaccine ( - 2023-2 5 season) 2023 08/09/2022, 10/01/2021, 04/14/2021, Additional history exists Albumin Creatinine Ratio, Urine 09/25/2024 4 eGFR 09/25/2024 09/26/2023, 09/28/2022 Influenza Vaccine (#1) 2024 12/28/2021 Hemoglobin A1C 02/12/2025 08/13/2024, 03/19, 01/02/2024, Additional history exists Regular Well Visit/Exam 18-64 02/12/2025, 09/28/2022, 09/28/2021, Additional history exists Dilated Eye Exam 03/27/2025 03/27/2024 Lipid Panel 08/13/2025 08/13/2024, 01/17, 09/26/2023, Additional history exists Prostate Cancer Screening-PSA 02/12/2026 02/13/2024, 09/28/2022 Colon Cancer Screening-Colonoscopy 06/04/2034 06/04/2024, 06/04/2024 Zoster Vaccine Completed 05/19/2022, 04/2022, 10/01/2021 Colon Cancer Screening-CT Colonography Discontinued 06/04/2024, 06/04/2024 Colon Cancer Screening-DNA Stool Discontinued 06/04/19, 06/04/2024 Colon Cancer Screening-FIT Discontinued 06/04/2024, Colon Cancer Screening-Sigmoidoscopy Discontinued 06/04/2024, 06/04/2024 Procedures Procedure Name Priority Date/Time Associated Diagnosis Comments CT INJECTION THERAPEUTIC CARPAL TUNNEL Routine 10/15/2024 7:10 AM CDT Bilateral hand numbness CT INJECTION THERAPEUTIC CARPAL TUNNEL Routine 10/15/2024 7:10 AM CDT Bilateral hand numbness POCUS SOFT TISSUE OF THE UPPER OR LOWER EXTREMITY Schedule Routine, Read Routine (OP Routine) 09/20/2024 9:19 AM CDT Bilateral hand numbness POCT GLUCOSE 40063 Routine 08/13/2024 2: 56 PM CDT Type 2 diabetes mellitus without complication, with long-term current use of insulin (HCC) POCT LIPID PANEL Routine 08/13/2024 2:56 PM CDT Type 2 diabetes mellitus without complication, with long-term current use of insulin (HCC) POCT HEMOGLOBIN A1C Routine 08/13/2024 2 :55 PM CDT Type 2 diabetes mellitus without complication, with long-term current use of insulin (HCC) COLONOSCOPY Routine 06/04/2024 9:06 AM TIRE BAGGER DIABETIC EYE EXAM Routine 03/27/2024 12: 32 PM TIRE BAGGER PSA SCREEN Routine 02/13/2024 3:19 PM CDT Health maintenance examination COMPREHENSIVE METABOLIC PANEL Routine 09/26/2023 2:38 PM CDT Type 2 diabetes mellitus without complication, with long-term current use of insulin (HCC) ALBUMIN CREATININE RATIO, URINE Routine 09/26/2023 2:38 PM CDT Type 2 diabetes mellitus without complication, with long-term current use of insulin (HCC) from Last 3 Months or Most Recently Relevant to Health Maintenance Results * CT INJECTION THERAPEUTIC CARPAL TUNNEL (10/15/2024 7:10 AM CDT) Narrative Marcus Varela MD - 10/15/2024 7:10 AM CDT Marcus Vraela MD 10/15/2024 7:58 AM Carpal Tunnel Injection Performed by: Marcus Varela MD Authorized by: Marcus Varlea MD Carpal Tunnel Injection: Consent Given by: Patient Timeout: prior to procedure the correct patient, procedure, and site was verified Verbal consent obtained?: Yes Supporting Documentation: Indications: Numbness, pain and therapeutic benefit Procedure Details: Condition: carpal tunnel Site: L carpal tunnel Prep: patient was prepped using a clean technique Needle Size: 25 G Approach: Volar Ultrasound guided: No Medications: 1 mL lidocaine 10 mg/mL (1 %); 10 mg methylPREDNISolone acetate 40 mg/mL Patient tolerance: Patient tolerated the procedure well with no immediate complications Injection. After a discussion of the pros, cons, risks, and benefits of a cortisone injection, the patient requested that we proceed. We specifically discussed the risks of skin lightening, subcutaneous fat atrophy, pain upon injection and the possibility of a flare reaction. The patient wished to proceed. A sterile preparation was performed with betadine. The injection was provided with 40 mg of depomedrol in 1cc of lidocaine in a pH balanced solution using a 25 gauge needle. The patient tolerated the procedure well. us Marcus Varela MD IN CLINIC/BEDSIDE ORDERAB LES Final Result * CT INJECTION THERAPEUTIC CARPAL TUNNEL (10/15/2024 7:10 AM CDT) Narrative Marcus Varela MD - 10/15/2024 7:10 AM CDT Marcus Varela MD 10/15/2024 7:58 AM Carpal Tunnel Injection Performed by: Marcus Varela MD Authorized by: Marcus Varela MD Carpal Tunnel Injection: Consent Given by: Patient Timeout: prior to procedure the correct patient, procedure, and site was verified Verbal consent obtained?: Yes Supporting Documentation: Indications: Numbness, pain and therapeutic benefit Procedure Details: Condition: carpal tunnel Site: R carpal tunnel Prep: patient was prepped using a clean technique Needle Size: 25 G Approach: Volar Ultrasound guided: No Medications: 1 mL lidocaine 10 mg/mL (1 %); 10 mg methylPREDNISolone acetate 40 mg/mL Patient tolerance: Patient tolerated the procedure well with no immediate complications Injection. After a discussion of the pros, cons, risks, and benefits of a cortisone injection, the patient requested that we proceed. We specifically discussed the risks of skin lightening, subcutaneous fat atrophy, pain upon injection and the possibility of a flare reaction. The patient wished to proceed. A sterile preparation was performed with betadine. The injection was provided with 40 mg of depomedrol in 1cc of lidocaine in a pH balanced solution using a 25 gauge needle. The patient tolerated the procedure well. us Marcus Varela MD IN CLINIC/BEDSIDE ORDERAB LES Final Result * POCUS Soft Tissue of the Upper or Lower Extremity (09/20/2024 9:19 AM CDT) Narrative RAD_PACS_POCUS[facility] - 09/20/2024 9:19 AM CDT This procedure was performed and interpreted by the provider. Please refer to the provider's procedure/OR operative note for results. Joe Castano MD POCUS ORDERABLES Final Resu lt RAD[facility]PACS_POCUS[facility] * POCT glucose (08/13/2024 2:56 PM CDT) Glucose Blood, POC 198 mg/dL Blood 08/13/2024 2:56 PM CDT Ki Hughes MD POINT OF CARE TEST ORDE LESLI Final Result * POCT lipid panel (08/13/2024 2:56 PM CDT) Cholesterol, POC 163 mg/dL HDL, POC 31 mg/dL Triglycerides, POC 126 mg/dL LDL Cholesterol POC 107 mg/dL Chol/HDL Ratio, POC 5.2 Non-HDL Cholesterol, POC 132 mg/dL Cholesterol Total, POC 163 mg/dL Capillary blood 08/13/2024 2 :56 PM CDT Ki Hughes MD POINT OF CARE TEST ORDE RABANGELA Final Result * POCT hemoglobin A1c (08/13/2024 2:55 PM CDT) Hemoglobin A1C, POC 9.1 4.0 - 5.6 % Capillary blood 08/13/2024 2 :55 PM CDT Result [facility] Ki Hughes MD POINT OF CARE TEST ORDE LESLI Final Result * Colonoscopy (06/04/2024 9:06 AM TIRE BAGGER) Anatomical Region Laterality Modality Other Historical Provider ENDOSCOPY PROCEDURES Romi l Result * Diabetic Eye Exam (03/27/2024 12:32 PM TIRE BAGGER) Historical Provider HEALTH MAINTENANCE Final Result * PSA screen (02/13/2024 3:19 PM CDT) PSA, Total 1.1 0.0 - 4.0 ng/mL [facility] Blood 02/13/2024 3:19 PM CDT 02/13/2024 3:36 PM CDT Babak Aragon MD LAB BLOOD ORDERABLES Final Result Performing Organization Address City/[facility]/ZIP Co de Phone Number [address] [address] * Albumin Creatinine Ratio, Urine (09/26/2023 2:38 PM CDT) Creatinine ur 245.0 Not Estab. mg/dL [facility] - 01 Microalbumin, ur 18.2 Not Estab. ug/mL [facility] - 01 Microalbumin/cre at ratio 7 0 - 29 mg/g creat [facility] - 01 Comment: Normal: 0 - 29 Moderately increased: 30 - 300 Severely increased: >300 Urine 09/26/2023 2:38 PM CDT 09/26/2023 Narrative [facility] - 09/27/2023 11:12 AM CDT Performed at: [facility] [id number] Computer Meteorologist: Trell Boone PhD, Phone: [phone] Ki Hughes MD LAB URINE ORDERABLES Fi nal Result [facility] - 01 * (ABNORMAL) Comprehensive metabolic panel (09/26/2023 2:38 PM CDT) Glucose 127(H) 70 - 99 mg/dL [facility] - 01 BUN 18 6 - 24 mg/dL [facility] - 01 Creatinine, Serum 0.91 0.76 - 1.27 mg/dL [facility] - 01 eGFR 98 >59 mL/min/1.7 3 [facility] - 01 BUN/creat ratio 20 9 - 20 [facility] - 01 Sodium 140 134 - 144 mmol/L [facility] - 01 Potassium, sr 4.2 3.5 - 5.2 mmol/L [facility] - 01 Chloride 104 96 - 106 mmol/L [facility] - 01 CO2 20 20 - 29 mmol/L [facility] - 01 Calcium 9.7 8.7 - 10.2 mg/dL [facility] - 01 Protein, sr 7.0 6.0 - 8.5 g/dL [facility] - 01 Albumin 4.3 3.8 - 4.9 g/dL [facility] - 01 Globulin, Total 2.7 1.5 - 4.5 g/dL [facility] - 01 A/G Ratio 1.6 [facility] - 01 Bilirubin, Total 1.0 0.0 - 1.2 mg/dL [facility] - 01 Alk phos 120 44 - 121 IU/L [facility] - 01 AST 17 0 - 40 IU/L [facility] - 01 ALT 22 0 - 44 IU/L [facility] - 01 Blood 09/26/2023 2:38 PM CDT 09/26/2023 Narrative [facility] - 09/27/2023 11:12 AM CDT Performed at: - [facility] [address] [id number] Computer Meteorologist: Trell Boone PhD, Phone: [phone] Ki Hughes MD LAB BLOOD ORDERABLES nal Result [facility] - 01 from Last 3 Months or Most Recently Relevant to Health Maintenance Insurance [employer] SIG [id number] [place] [address] [facility]/PPO Address: [address] [address] [place] [address] [address] [place], [place] [address] [facility] Address[address] [place] [phone] [place] [address] [facility] Address: [address] [address] [place] [address] [facility]/PPO Address: [place] [phone] Care Teams Lamination Machine Operator Relationship Specialty Start Date End Date Babak Aragon MD PCP - General 12/18/17
--- OUTSIDE RECORDS SUMMARY | 2024-11-02 14:27 | XMS_ITS | Encounter Summary ---
Author Organization [facility] Address [address] [place] [address] Phone Care Team Providers Care Conservation Biology Professor Name Role Phone Babak Aragon MD Primary Care Provider [phone] Encounter Details Date Type Department Care Team (Late st Contact Info) Description 04/23/2021 Orders Only [facility] [address] [place] [address] Scanning, Provider Social History Tobacco Use Types Packs/Day Years Used Date Smoking Tobacco: Never Smokeless Tobacco: Never Alcohol Use Standard Drinks/Week Comments Yes 0 (1 standard drink = 0.6 oz pur e alcohol) Sex and Gender Information Value Date Recorded Sex Assigned at Not on file Legal Sex Male 12:35 PM CONTRACT TECHNICAL WRITER Gender Identity Male 05/17/2023 7:58 AM CONTRACT TECHNICAL WRITER Sexual Orientation Straight 05/17/2023 7: 58 AM CONTRACT TECHNICAL WRITER 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 Not on file Not on file documented as of this encounter Plan of Treatment Not on file documented as of this encounter Procedures Procedure Name Priority Date/Time Associated Diagnosis Comments SCAN - RADIOLOGY/IMAGING 04/23/2021 4:08 PM CONTRACT TECHNICAL WRITER documented in this encounter Results * SCAN - RADIOLOGY/IMAGING (04/23/2021 4:08 PM CONTRACT TECHNICAL WRITER) Anatomical Region Laterality Modality Other us Provider Scanning Edited Result - Final documented in this encounter Visit Diagnoses Not on filedocumented in this encounter Care Teams Conservation Biology Professor Relationship Specialty Start Date End Date Babak Aragon MD PCP - General 04/04/17 documented as of this encounter
--- OUTSIDE RECORDS SUMMARY | 2024-11-02 14:27 | XMS_ITS | Clinical Summary ---
Author Organization [facility] Address [address] [place] [address] Care Team Providers Care Lumber Buyer Name Role Phone Unavailable Primary Care Provider Unavailabl e Social History Tobacco Use Types Packs/Day Years Used Date Smoking Tobacco: Never Assessed Sex and Gender Information Value Date Recorded Sex Assigned at Not on file Legal Sex Male 11:04 PM CDT Gender Identity Not on file Sexual Orientation Not on file Plan of Treatment Health Maintenance Due Date Last Done Comments Colorectal Cancer Screening Colonoscopy (10 Years) 1965 Annual Physical 1968 Hepatitis C 11/13/1983 DTaP, Tdap and Td Vaccines ( 1 - Tdap) 1984 Hepatitis B Vaccines (1 of 3 - 19+ 3-dose series) 1984 Pneumococcal Vaccine: 50+ Ye ars (1 of 1 - PCV) 11/13/2015 Zoster Vaccines (1 of 2) 11/13/2015 COVID-19 Vaccine (2023-2 5 season) 2023 Meningococcal B Vaccine Aged Out No l onger eligible based on patient's age to complete this topic Meningococcal Vaccine Aged Out No irwin arie eligible based on patient's age to complete this topic RSV Immunizations Under 20 Months Aged Out No longer eligible based on patient's age to complete this topic
--- OUTSIDE RECORDS SUMMARY | 2024-11-02 14:27 | XMS_ITS | Data Portability ---
Author Organization [place] - [facility], Estee Weeks Address [address] [place] [address] Assessment No assessment recorded. Plan of Treatment Reminders Order Date Submit Date Provider Last Modified By Organization Details Last Modified Time Details Appointments None recorded. Lab rf (rheumatoid factor) + anti-ccp abs, serum 2024 025 [facility], [address] [place], [address], 5 13:15:58 erythrocyte sedimentati on rate by westergren method 2024 025 [facility] [address] [place], [address], 5 13:15:58 C reactive protein, QN, serum or plasma 2024 025 [facility] [address] [place], [address], 5 13:15:59 Referral hand surgeon referral - Duprytens contracture and increasing pain and 4th finger starting to curl desires consultatio n with hand ortho for management 2024 025 JAZMINE Varela MD, [address], [place], [address], 5 20:39:11 Procedures None recorded. Surgeries None recorded. Imaging None recorded. Medication Orders meloxicam [address] [facility], [address] [place], [address], 13:01:17 Patient TargetsNo targets recorded. Patient InstructionsNo instructions recorded. Reason for Referral Hand Surgeon Referral for Du puytren's disease of palm Duprytens contracture and increasing pain and 4th finger starting to curl desires consultation with hand ortho for management Referring Physician: Maira Vallecillo, Family Medicine, Encounter Date: 07/11/2024 Results Created Date Observation Date Name Description Value Unit Range Abnormal Flag Note LastModifiedBy Organization Detail LastModifiedTime 07/12/1907/12/2024 RHEUM ATOID ARTHR ITIS PROFI LE rheumatoid factor (rf) <10.0 IU/mL <14.0 Not Available [facility] [address] [place], [address], 07/12/2024 13:15:58 07/12/1907/12/2024 RHEUM ATOID ARTHR ITIS PROFI LE anti-ccp Ab, IgG/IgA 5 units 0-19 Negat otto <20 Weak posit otto 20 - 39 Moder ate posit otto 40 - 59 Stron g posit otto >59 Not Available [facility] ([facility]) [address] [place], [address], 07/12/2024 13:15:58 07/12/1907/12/2024 SEDIM ENTAT ION RATE- WESTE RGREN sedimentatio n rate-westerg anabela 3 mm/HR 0-30 normal Not Available [facility] [address] [place], [address], 07/12/2024 13:15:58 07/12/1907/12/2024 C-JOSHUA CTIVE PROTE IN, QUANT C-reactive protein, quant 2 mg/L 0-10 normal Not Available [facility] [address] [place], [address], 07/12/2024 13:15:59 Result Notes None recorded. Problems Name Problem SNOMED Code Status Onset Date Resolution Date Notes Provider Name and Address Organization Details Recorded Time Dupuytren' s contractur e of finger 507893190 Active 09/09 hand ortho 1) dupuytren' s contractur e or DM related decrease motion 2) peripheral neuropathy 3) DM 2 CHECK EMG WITH ULTRASOUND --NOTE STATES PT'S PCP IS MD Maira ALEMAN MD [address], [place], [address], [place] [facility] 20:40:18 Problem Notes None recorded. Procedures Surgical History Date Name Laterality Status Provider Name and Address Organization Details Recorded Time 06/04/19 25 Colonoscopy completed Shamica Tilmon [place] [facility] 07/11/2024 12:32:02 09/08/19 24 Septoplasty completed Shamica Tilmon [place] [facility] 07/11/2024 12:32:02 05/06/19 07 Vasectomy completed Shamica Tilmon [place] [facility] 07/11/2024 12:32:02 07/18/19 05 Knee Surgery completed Shamica Tilmon [place] [facility] 07/11/2024 12:32:02 Hemorrhoidectomy completed Shamica Tilmon [place] [facility] 07/11/2024 12:32:02 Orthopedic Surgery completed Shamic a Tilmon [place] [facility] 07/11/2024 12:32:02 Imaging Results None recorded. Procedure Notes None recorded. Medical Equipment None Reported. Allergies Allergen ID Allergen Name Allergen Category Reaction Reaction Severity Criticality Documentation Date Start Date Code Code System Note Provider Name and Address Organization Details Recorded Time 319495 Product containin g 3-hydroxy -3-methyl glutaryl- coenzyme A reductase inhibitor (product) medicatio n myalgias (muscle pain) Not available high 07/11/2024 31970 009 SNOMED state s sever e muscl e aches on stati ns Maira Vallecillo MD [address], [place], [address], [facility] 13:16:42 Medications Name Sig Start Date Stop Date Status Note LastModified by Organization Details LastModified Time losartan 50 mg tablet active Not Available Not Available No t Available cyclobenzap rine 10 mg tablet TAKE 1 TABLET BY MOUTH AT BEDTIME NEEDED FOR MUSCLE SPASM 07/11 completed Not Available Not Available Not Available hydrocodone 5 mg-acetamin ophen 325 mg tablet TAKE 1 TABLET BY MOUTH EVERY 4 TO 6 HOURS NEEDED FOR PAIN 07/11 completed Not Available Not Available Not Available meloxicam 15 mg tablet Take 1 tablet every day by oral route as needed for 30 days. 2024 active Not Available Not Available Not Avai lable acetaminoph en 500 mg tablet TAKE 2 TABLETS BY MOUTH EVERY 6 HOURS NEEDED active Not Available Not Available No t Available ibuprofen 600 mg tablet TAKE 1 TABLET BY MOUTH THREE TIMES DAILY NEEDED FOR PAIN active Not Available Not Available No t Available cefdinir 300 mg capsule TAKE 1 CAPSULE BY MOUTH TWICE DAILY FOR 7 DAYS. START THE DAY BEFORE PROCEDURE 07/11 completed Not Available Not Available Not Available rosuvastati n 40 mg tablet active Not Available Not Available Not Available Lyumjev KwikPen U-100 Insulin 100 unit/mL subcutaneou s active Not Available Not Available Not Available Semglee (insulin glargine-yf gn) Pen 100 unit/mL (3 mL) subcutaneou s active Not Available Not Available Not Available Vitals Date Recorded Systolic And Diastolic Provider Name and Address Organization Details Last Updated DateTime 07/11/2024 128/78 mm[Hg] Maira Vallecillo MD [address], [facility] [place], [address], [place] [facility] 07/11/2024 12:59:21 Date Recorded Body weight Body mass index (BMI) Body height Body temperature Heart rate Oxygen saturation Oxygen saturation in Arterial blood by Pulse oximetry Systolic And Diastolic Provider Name and Address Organization Details Last Updated DateTime 651724. 43 g 31.1 kg/m2 187.96 cm 97.7 [degF] 69 /min 99 % 99 % 149/85 mm[Hg] Hodan Galvez [place] [facility] 12:29:52 Social History Question Answer Notes LastModified by Organizat ion Details LastModified Time Tobacco Smoking Status Never Smoker Hodan pierre [place] [facility] 07/11/2024 12:31:58 What Is Your Level Of Caffeine Consumption? Moderate Information not available 07/11/2024 How Much Tobacco Do You Chew? None Information not available 07/11/2024 What Is The Highest Grade Or Level Of School You Have Completed Or The Highest Degree You Have Received? IV24085-2 Information not available 07/11/2024 Cigar Smoking No Information not available 07/11/2024 Does Anyone Insult Or Talk Down To You? Never Information not available 07/11/2024 Does Anyone Physically Hurt You At Home? Never Information not available 07/11/2024 Does Anyone Scream Or Curse At You? Never Information not available 07/11/2024 Does Anyone Threaten/bully You With Harm? Never Information not available 07/11/2024 Lives With Ching Information no t available 07/11/2024 Sleep Habits Good Information not available 07/11/2024 Have You Ever Served In The ? No Information not available 07/11/2024 What Was The Date Of Your Most Recent Tobacco Screening? 07/11/2024 Information not available 07/11/2024 What Is Your Relationship Status? Information not available 07/11/2024 Sex: Unknown Functional Status Question Answer Note LastModified by Organizat ion Details LastModified Time Do you or have you ever used any other forms of tobacco or nicotine? No Information not available 07/11/2024 Do you or have you ever used smokeless tobacco? Never used smokeless tobacco Information not available 07/11/2024 What is your occupation? [employer] Information not available 07/11/2024 Mental Status None recorded. Family History Relationship Description Onset Age of this Age Resolved Age Notes LastModified by Organization Details LastModified Time Brother Arthritis Not availab le 07/11/2024 12:31:44 Father Arthritis Not availabl e 07/11/2024 12:31:44 Medical History Condition Response Diabetes Type II Y Hypertension (High Blood Pressure) Y Hyperlipidemia (High Cholesterol) Y Past Encounters Encounter ID Performer Location Encounter Start Date Encounter Closed Date Diagnosis/Indication Diagnosis SNOMED-CT Code Diagnosis ICD10 Code Diagnosis Note [id number] MD Mine Purcell s [address] [place] [address] 07/11/2024 12:11:40 07/11/2024 15:26:31 Dupuytren's disease of palm 135703166 M72.0 researched the following and they are in [facility] where his PCP is and in network and so will refer there first Marcus Varela [phone]/ Teresa Melgoza [phone] and ortho associates Char Saenz MD will otw send my notes to his PCP at [facility] --seen here as much easier and faster to get in Dupuytren' s contracture of finger [id number] M72.0 researched the following and they are in [facility] where his PCP is and in network and so will refer there first Marcus Varela [phone]/ Teresa Melgoza [phone] and ortho associates Char Saenz MD will otw send my notes to his PCP at [facility] --seen here as much easier and faster to get in Pain of bi lateral hands [id number] 3994467 M79.641 meloxicam prn reviewedno t to use other nsaids with meloxicam same day , ok to use tylenol\li st of nsaids reviewed in detail labs to rule out RA but likely OA [id number] MD Mine Purcell s [address] [place] [address] 07/12/2024 17:14:30 07/13/2024 09:39:13 Dupuytren's disease of palm [id number] M72.0 researched the following and they are in [facility] where his PCP is and in network and so will refer there first Marcus Varela [phone]/ Teresa Melgoza [phone] and ortho jamilah Saenz MD will otw send my notes to his PCP at [facility] --seen here as much easier and faster to get in results received and reviewed with pt ...normal RA labs, he does not have RA, notes sent to his PCP and to errol Varela MD for whom he yet has paul make appt BUT he intends on seeing this provider Dupuytren' s contracture of finger [id number] M72.0 researched the following and they are in [facility] where his PCP is and in network and so will refer there first Marcus Varela [phone]/ Teresa Melgoza [phone] and ortho associates Char Saenz MD will otw send my notes to his PCP at [facility] --seen here as much easier and faster to get in results received and reviewed with pt ...normal RA labs, he does not have RA, notes sent to his PCP and to errol Varela MD for whom he yet has paul make appt BUT he intends on seeing this provider Health Concerns Section Related Observation LastModified by Organization Detai ls LastModified Time None Recorded Concern Status LastModified by Organization Details LastModified Time None Recorded Advance Directives Directive None Recorded Payers Insurance Date Sequence Insurance Name Policy Number Policy Hope Covered Member ID Hope Member ID Guarantor Name 07/11/2024 1 [facility] JEWELRY DESIGNER - P [id number] Miguel Olveramann UNKNOWN Miguel E Bertkayleighmann 07/11/2024 1 [facility] JEWELRY DESIGNER - P [id number] Miguel E Bertelsmann UNKNOWN Miguel E Bertelsmann 07/11/2024 1 [facility] JEWELRY DESIGNER - P [id number] Miguel E Bertelsmann UNKNOWN Miguel E Bertelsmann 07/11/2024 1 [facility] JEWELRY DESIGNER - P [id number] Miguel E Bertelsmann UNKNOWN Miguel E Bertelsmann 07/11/2024 1 [facility] - [facility]EWELRY DESIGNER - P [id number] Miguel Olveramann [id number] Miguel Gonzalez Notes Date Note Type Note Provider Name and Address Organization Details Recorded Time 07/11/2024 text/html here for chronic problem but getting worse has hx of DM, htn, hld managed by his PCP hand pain for on and off 10 yearslast 5-6 months hand pain worse athe palms fingeresand has strictures below his 3rd to 4th fingersno family hx of RApcp tells him he has general arthritis but thinks he has a condition and she wanted him evaluated and referred to ortho hand pain limited to the small joints of the hand, not elbow, wrist, shoulder, has chronic bilat hip pain.. 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 --Current meds:--Allergies: nkda--PCP:Babak Aragon MD [phone] Social history:Home environment:-- : yes--Children: yes --Occupation: chicas --Diet: unrestricted daibetic--Exercise: yes--Caffeine: yes cup coffee--Tobacco use: no----Cigarettes/Ciga rs: no-----Smokeless tobacco: no-----Nicotine use: no--Alcohol Use: no--Substance use: no Medical History:-- see EHR updatedSurgical History:--see EHR updatedFamily History:--see EHR updatedSexual History:#Partners:--c ontraception: none--history of STIs no Maira Vallecillo MD [address], [place], [address], [place] - [facility] 07/11/2024 13:22:17 07/12/2024 text/html VIRTUAL VISIT Name: Miguel JOHNSON verified Means of contact: telephone Patient Location: [place] Provider Location: [address] [place] [address] Disclaimer read: While we make every effort at maintaining confidentiality, we are using telephone or Leonard based telehealth video and relying on this platform to protect your privacy. Should you be deemed not appropriate for telemedicine assessment and treatment at any point in the visit you will be referred to a provider for a face to face encounter. Verbal Consent Obtained: YES Patient Appropriate for telehealth visit: YES [facility] and or marathon team got a hold of him Maira Vallecillo MD [address], [place], [address], [place] - [facility] 07/12/2024 17:19:10
--- OUTSIDE RECORDS SUMMARY | 2024-11-02 14:27 | XMS_ITS | Referral Summary ---
Author Organization [facility] [address] Address [address] [place] [address] Care Team Providers Care Cooling System Operator Name Role Phone Babak Aragon MD Primary Care Provider [phone] Encounters Date Type Department Care Team Description 10/23/2024 Orders Only [facility] [address] [facility] [address] [facility] [address] [place] [phone] Annie Tsai RMA 10/15/2024 7:10 AM CDT Office Visit [facility] Orthopaedic Surgery [address] [place] [address] 2nd Floor [address] [place] [phone] Marcus Varela MD Bilateral hand numbness (Primary Dx) 09/26/2024 Telephone [facility] [address] [place] [address] Marcus Varela MD 09/20/2024 9:20 AM CDT Ancillary Procedure [facility] Orthopaedic Surgery [address] [place] [address] Floor [address] [place] [phone] Bilateral hand numbness 09/20/2024 9:00 AM CDT Procedure visit [facility] Orthopaedic Surgery [address] [place] [address] Floor [address] [place] [phone] Joe Castano MD Bilateral hand numbness (Primary Dx) 09/18/2024 Telephone [facility] [address] [facility] [address] [facility] [address] [place] [address] Ki Hughes MD PA MOUNJARO 2.5MG 08/20/2024 1:20 PM CDT Office Visit [facility] Orthopaedic Surgery [address] [facility] 2nd Floor [address] [place] [address] Marcus Varela MD Bilateral hand numbness (Primary Dx); Dupuytren's disease of palm; Diabetic neuropathy associated with type 2 diabetes mellitus (HCC) 08/13/2024 2:15 PM CDT Office Visit [facility] [address] [facility] [address] [place] [address] Ki Hughes MD Type 2 diabetes mellitus without complication, with long-term current use of insulin (HCC) (Primary Dx); Pure hypercholesterolemia ; Primary hypertension from Last 3 Months Allergies Active Allergy Reactions Criticality Noted Date Comments Eatecqh-Xbk-Rvr Reductase Inhibitors Muscle pain High 08/20/2024 Product containing 2-ohzmwua-6-methylglutary l-coenzyme A reductase inhibitor (product) Medications gabapentin [...] therapy. Assessment & Plan (04/12/2024 1:18 PM ROBOTICS SPECIALIST): At goal on current therapy. Assessment & [...] week. Assessment & Plan (04/12/2024 1:17 PM ROBOTICS SPECIALIST): At goal on current therapy. Assessment & [...] exams. Assessment & Plan (04/12/2024 8:09 PM ROBOTICS SPECIALIST): A1c improving, but still above goal. Add [...] 3 months to see me and our paraeducator. Immunizations Immunization Administration Dates Next Due DT 04/18/2012 Influenza, Quadrivalent, Rec ombinant, Egg Free, Preservative Free, Intramuscular 12/28/2021 [employer] ([employer]) SARS-CoV-2 Vaccination 06/26/2020 Moderna Sars-cov-2 Bivalent Vaccine 50 Mcg/0.5 mL (12+ YRS)-Blue/Ortiz 08/09/2022 Pfizer SARS-CoV-2 Monovalent Vaccination (12+ Yrs) PURPLE 10/01/2021,04/14/2021 ZOSTER LIVE 10/01/2021 ZOSTER Recombinant 05/19/2022,04/18/2022 Social History Tobacco Use Types Packs/Day Years Used Date Smoking Tobacco: Never Smokeless Tobacco: Never Alcohol Use Standard Drinks/Week Comments Yes 0 (1 standard drink = 0.6 oz pur e alcohol) Sex and Gender Information Value Date Recorded Sex Assigned at Not on file Legal Sex Male 12:35 PM ROBOTICS SPECIALIST Gender Identity Male 05/17/2023 7:58 AM ROBOTICS SPECIALIST Sexual Orientation Straight 05/17/2023 7: 58 AM ROBOTICS SPECIALIST 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 Not on file Not on file Last Filed Vital Signs Vital Sign Reading [...] 08/20/2024 12:57 PM CDT Plan of Treatment Not on file Procedures Procedure Name Priority Date/Time Associated Diagnosis Comments FL INJECTION THERAPEUTIC CARPAL TUNNEL Routine 10/15/2024 7:10 AM CDT Bilateral hand numbness FL INJECTION THERAPEUTIC CARPAL TUNNEL Routine 10/15/2024 7:10 AM CDT Bilateral hand numbness POCUS SOFT TISSUE OF THE UPPER OR LOWER EXTREMITY Schedule Routine, Read Routine (OP Routine) 09/20/2024 9:19 AM CDT Bilateral hand numbness POCT GLUCOSE 92477 Routine 08/13/2024 2: 56 PM CDT Type [...] insulin (HCC) COLONOSCOPY Routine 06/04/2024 9:06 AM ROBOTICS SPECIALIST DIABETIC EYE EXAM Routine 03/27/2024 12: 32 PM ROBOTICS SPECIALIST PSA SCREEN Routine 02/13/2024 3:19 PM CDT [...] Recently Relevant to Health Maintenance Results * FL INJECTION THERAPEUTIC CARPAL TUNNEL (10/15/2024 7:10 AM CDT) Marcus Jo MD - 10/15/2024 7:10 AM CDT Marcus [...] IN CLINIC/BEDSIDE ORDERAB LES Final Result * FL INJECTION THERAPEUTIC CARPAL TUNNEL (10/15/2024 7:10 AM [...] the provider's procedure/OR operative note for results. us Joe Castano MD POCUS ORDERABLES Final Resu lt RAD_PACS_POCUS_[facility] * POCT glucose (08/13/2024 2:56 PM CDT) Glucose Blood, POC 198 mg/dL Blood 08/13/2024 2:56 PM CDT Result [facility] Ki Hughes MD POINT OF CARE TEST ORDE RABLES Final Result * POCT lipid panel (08/13/2024 2:56 PM CDT) Cholesterol, POC 163 mg/dL HDL, POC 31 mg/dL Triglycerides, POC 126 mg/dL LDL Cholesterol POC 107 mg/dL Chol/HDL Ratio, POC 5.2 Non-HDL Cholesterol, POC 132 mg/dL Cholesterol Total, POC 163 mg/dL Capillary blood 08/13/2024 2 :56 PM CDT Result [facility] Ki Hughes MD POINT OF CARE TEST ORDE RABLES Final Result * POCT hemoglobin A1c (08/13/2024 2:55 PM CDT) Hemoglobin A1C, POC 9.1 4.0 - 5.6 % Capillary blood 08/13/2024 2 :55 PM CDT Result [facility] Ki Hughes MD POINT OF CARE TEST ORDE RABANGELA Final Result * Colonoscopy (06/04/2024 9:06 AM ROBOTICS SPECIALIST) Anatomical Region Laterality Modality Other Historical Provider ENDOSCOPY PROCEDURES Romi l Result * Diabetic Eye Exam (03/27/2024 12:32 PM ROBOTICS SPECIALIST) Historical Provider HEALTH MAINTENANCE Final Result * PSA screen (02/13/2024 3:19 PM CDT) PSA, Total 1.1 0.0 - 4.0 ng/mL [facility] Blood 02/13/2024 3:19 PM CDT 02/13/2024 3:36 PM CDT Result [facility] Babak Aragon MD LAB BLOOD ORDERABLES Final Result [address] [address] * Albumin Creatinine Ratio, Urine (09/26/2023 2:38 [...] - 09/27/2023 11:12 AM CDT Performed at: [address] [place] [id number] Engineering Designer: Trell Boone PhD, Phone: [phone] Ki Hughes MD LAB URINE ORDERABLES Fi nal Result Performing Organization Address City/[facility]/ZIP Co de Phone Number [facility] - 01 * (ABNORMAL) Comprehensive [...] - 09/27/2023 11:12 AM CDT Performed at: [facility] [address] [id number] Engineering Designer: Trell Boone PhD, Phone: [phone] Ki Hughes MD LAB BLOOD ORDERABLES Fi nal Result [facility] - 01 from Last 3 Months or Most Recently Relevant to Health [place] [address] [employer] SIG [id number] [facility] Address: [address] [address] [place] [address] [facility]/PP[facility] Address: [address] [address] [place] [address] [facility] Address: [address] [address] [place] [address] [facility] H[facility]/PPO Address: [address] [address] Care Teams Cooling System Operator Relationship Specialty Start Date End Date Babak Aragon MD PCP - General 04/04/17
[2024-11-02 14:38] VITALS: BP 126/80; PULSE 86; RESP 16; TEMP 36.6; O2SAT 98
[2024-11-02 14:42] LABS: EDCOVIDSCREEN Positive (Negative)
== END 2024-11-02 14:52 | disposition home or self-care (01) ==
PROVIDERS: Emergency Provider Nurse Practitioner
DX: U07.1 COVID-19 (principal); E11.9 Type 2 diabetes mellitus without complications; Z79.4 Long term (current) use of insulin
CPT/HCPCS: 87426; 99212; G0463